=== PATIENT | female | born 1950 | race Caucasian/White ===

== ENCOUNTER → 2021-05-27 10:18 | Outpatient (CLI) | payer MEDICARE, OTHER, SELFPAY ==
[2021-05-27 12:09] LABS: Add Manual Diff / Slide Review NO; Basophils Absolute Auto 100 /uL (0-100); Basophils Percent Auto 0.8 % (0-2); Eosinophils Absolute Auto 100 /uL (0-450); Eosinophils Percent Auto 1.7 % (2-4); Hematocrit 42.1 % (36-46); Hemoglobin 14.2 g/dL (12.0-16.0); Lymphocytes Absolute Auto 2100 /uL (1100-4500); Lymphocytes Percent Auto 26.4 % (25-40); Mean Corpuscular HGB Conc 33.8 % (30-36); Mean Corpuscular Hemoglobin 30.5 PG (26-34); Mean Corpuscular Volume 90.3 fL (80-100); Monocytes Absolute Auto 500 /uL (0-900); Monocytes Percent Auto 6.2 % (3-14); Neutrophils Absolute Auto 5200 /uL (1500-7000); Neutrophils Percent Auto 64.9 % (50-75); Platelet Count 215 X10^3/uL (150-400); Red Blood Cell Count 4.66 X10^6/uL (4.0-5.2); Red Cell Distribution Width 13.3 % (11.6-14.8)
[2021-05-27 12:39] LABS: Erythrocyte Sedimentation Rate 3 MM/HR (0-20)
[2021-05-27 13:38] LABS: Alanine Aminotransferase 17 IU/L (<35); Albumin 4.1 g/dL (3.5-5.0); Albumin Globulin Ratio 1.6 (1.0-2.8); Alkaline Phosphatase 57 U/L (38-126); Aspartate Aminotransferase 25 IU/L (14-36); BUN Creatinine Ratio 32.1 (6-22); Bilirubin Total 0.3 mg/dL (0.2-1.3); Blood Urea Nitrogen 18 mg/dL (7-17); Calcium 9.3 mg/dL (8.4-10.2); Carbon Dioxide 29 mmol/L (22-32); Chloride 106 mmol/L (98-107); Estimated Glomerular Filt Rate > 60.0 mL/min (>60); Globulin 2.6 g/dL (1.7-4.1); Glucose 65 mg/dL (80-110); HEMOLYSIS 23 (0-50); Potassium 4.6 mmol/L (3.4-5.1); Sodium 138 mmol/L (137-145); Total Protein 6.7 g/dL (6.3-8.2)
[2021-05-27 13:43] LABS: High Sensitivity CRP - Cardiac 1.2 mg/L (1.0-3.0)
== END ==
PROVIDERS: Family Provider Family Medicine; PCP Family Medicine; Referring Provider Ophthalmology; Visit Provider Ophthalmology
DX: H53.123 Transient visual loss, bilateral (principal)
CPT/HCPCS: 36415; 80053; 85025; 85651; 86140

== ENCOUNTER → 2021-06-19 13:26 | Outpatient (CLI) | payer MEDICARE, OTHER, SELFPAY ==
--- NOTE | 2021-06-19 | DI.MG.S_ITS ---
BILATERAL DIGITAL DIAGNOSTIC MAMMOGRAM 3D/2D: 06/19/2021 CLINICAL: Left breast changes. Baseline. No prior exams were available for comparison. There are scattered fibroglandular elements in both breasts. No significant masses, calcifications, or other findings are seen in either breast. IMPRESSION: INCOMPLETE: NEEDS ADDITIONAL IMAGING EVALUATION There is no abnormality seen in the left breast to correspond with the nipple abnormality in the sub-areolar depth, however, ultrasound is recommended. This exam was interpreted at Station ID: [id number]. NOTE: For mammograms, a report in lay terms will be sent to the patient. Approximately 15% of breast malignancies will not be visualized mammographically. In the management of a palpable breast mass, a negative mammogram must not discourage biopsy of a clinically suspicious lesion. Electronically Signed By: Orlando bangura/lisseth:06/19/2021 14:22:37 ACR BI-RADS Category 0: Incomplete [id number]
--- NOTE | 2021-06-19 13:27 | DI.US.S_ITS ---
LIMITED ULTRASOUND OF LEFT BREAST: 06/19/2021 CLINICAL: Patient returns for sonographic evaluation of left breast mass. Comparison is made to exam dated: 06/19/2021 [facility]. Real-time ultrasound of the left breast retroareolar was performed. Yepez scale images of the real-time examination were reviewed. No significant abnormalities were seen sonographically in the left breast. IMPRESSION: NEGATIVE There is no sonographic evidence of malignancy. There is no abnormality seen in the left breast to correspond with the palpable abnormality in the sub-areolar depth, however, clinical followup is recommended. A 1 year screening mammogram is recommended. This exam was interpreted at Station ID: [id number]. Electronically Signed By: Orlando bangura/lisseth:06/19/2021 14:23:29 letter sent: Clinical Evaluation Ultrasound BI-RADS: 1 Negative
== END ==
PROVIDERS: Family Provider Family Medicine; PCP Family Medicine; Referring Provider Family Medicine; Visit Provider Family Medicine
DX: N64.59 Other signs and symptoms in breast (principal); R92.2 Inconclusive mammogram
CPT/HCPCS: 76642; 77066; G0279

== ENCOUNTER 2022-10-22 22:45 | Emergency (ER) | payer MEDICARE, OTHER, SELFPAY ==
[2022-10-22 22:54] VITALS: BP 176/76; PULSE 72; RESP 18; TEMP 36.1; O2SAT 98; BMI 21.2
--- NOTE | 2022-10-22 23:31 | ED_ITS ---
HPI - Skin/Abscess/Foreign Bdy General Chief complaint: Skin/Abscess/Foreign Body Stated complaint: Tick Time Seen by Provider: 10/22/22 23:15 Source: patient Mode of arrival: Ambulatory History of Present Illness HPI narrative: Patient here with . Has tick bite to the left upper thigh. Patient and were at [facility] for the past 3 days. They have a cabin there. Heavily wooded. Had been working in the outside area. Patient felt something on her thigh yesterday. They returned today. Getting out of the shower she noticed a tick. She removed the tick at 4:00 p.m.. She has removed the head as well. She brought it in with her. Since then has had erythema and red streaking proximally on the skin. No fever chills. Patient needs update on tetanus. Denies any heart disease. Denies any fever chills. The tick she states was flat. Not engorged. Patient in gown. Clothing removed. Female nurse at bedside to Meggan cox. Patient brought in the tick. 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 It is flat. Not engorged. Related Data Previous Rx's Medication Instructions Recorded oxyquinoline 0.025 %-sodium lauryl See Rx Instructions vaginal 04/04/19 sulfate 0.01 % vaginal gel .COMPLEX #113.4 grams doxycycline monohydrate 100 mg 100 mg PO BID #42 caps 10/22/22 capsule Allergies Allergy/AdvReac Type Severity Reaction Status Date / Time No Known Allergies Allergy Uncoded 09/16/17 12:06 Review of Systems Review of Systems Narrative: GENERAL: negative chills, fatigue, malaise, fever, sweats. HEENT: negative sinus pain, ear pain, sore throat RESPIRATORY: negative dyspnea, cough CARDIOVASCULAR: negative chest pain, palpitations GASTROINTESTINAL: negative nausea, vomiting, abdominal pain : negative dysuria, frequency, hematuria MUSCULOSKELETAL: negative muscle or bony pain SKIN: Positive rash NEUROLOGIC: negative weakness, numbness ROS Unobtainable: All systems reviewed & are unremarkable except as noted in HPI and below Patient History Social History Smoking Status: Never smoker Smoking Status: Never smoker alcohol intake frequency: holidays/special occasions only Substance Use Type: does not use Exam Narrative Exam Narrative: GENERAL: in no distress, not toxic not dyspneic HEAD: Normocephalic. EYES: Pupils equal round ENT: Mucous membranes moist. NECK: Trachea midline. CARDIOVASCULAR: Regular rate and rhythm without murmurs RESPIRATORY: Clear to auscultation. Breath sounds equal bilaterally. No wheezes, rales, or rhonchi. GASTROINTESTINAL: Abdomen soft, non-tender EXTREMITIES: No gross deformities. BACK: No flank tenderness. NEURO: AOx4. SKIN: Warm and dry, left upper thigh surgical pen used to outlined erythema surrounding the ulcerated skin where patient removed the tick. I do not see any remnants or body parts or the head parts inside this small ulceration that is pencil tip size. Erythema is 4 cm in diameter and oval shaped. There is a line of red streaking lymphangitis proximally going towards the left upper, it is not indurated. It is nontender. Meggan, nurse, at bedside to vegetable handler. I do not see any ticks on the scalp, exam light used overhead. No tick seen in the genitalia area breast back chest arms legs armpits between the fingers and toes. PSYCH: Not anxious, is cooperative Initial Vital Signs Initial Vital Signs: Vital Signs Temperature 97 F L 10/22/22 22:54 Pulse Rate 72 10/22/22 22:54 Respiratory Rate 18 10/22/22 22:54 Blood Pressure 176/76 H 10/22/22 22:54 Pulse Oximetry 98 10/22/22 22:54 Oxygen Delivery Method Room Air 10/22/22 22:54 Course Orders Ordered: ED Orders 10/22/22 23:40 Rickettsial Fever Gr IgG IgM Stat Discontinued Medications Bacitracin (Bacitracin Oint 0.9 Gm Pckt) 1 applic TOP NOW ONE Stop: 10/22/22 23:31 Last Admin: 10/22/22 23:38 Dose: 1 applic Documented By: PINKY Diphtheria/Tetanus/Acell Pertussis (Tet,Diph,Pertuss(Acell),Vac/Pf 0.5 Ml Syringe) 0.5 ml IM .ONCE ONE Stop: 10/22/22 23:31 Last Admin: 10/22/22 23:38 Dose: 0.5 ml Documented By: PINKY Doxycycline Hyclate (Doxycycline Hyclate 100 Mg Tablet) 100 mg PO NOW ONE Stop: 05/17/23 23:31 Last Admin: 10/22/22 23:38 Dose: 100 mg Documented By: PINKY Vital Signs Vital signs: Vital Signs - 8 hr 10/22/22 22:54 10/23/22 00:10 Temperature 97 F L Pulse Rate 72 74 Respiratory Rate 18 18 Blood Pressure 176/76 H 148/74 H Pulse Oximetry 98 98 Oxygen Delivery Method Room Air Room Air MDM - Skin/Abscess/Foreign Bdy MDM Narrative Medical decision making narrative: Patient here with . Has tick bite to the left upper thigh. Patient and were at [facility] for the past 3 days. They have a cabin there. Heavily wooded. Had been working in the outside area. Patient felt something on her thigh yesterday. They returned today. Getting out of the shower she noticed a tick. She removed the tick at 4:00 p.m.. She has removed the head as well. She brought it in with her. Since then has had erythema and red streaking proximally on the skin. No fever chills. Patient needs update on tetanus. Denies any heart disease. Denies any fever chills. The tick she states was flat. Not engorged. Patient in gown. Clothing removed. Female nurse at bedside to Meggan cox. Patient brought in the tick. 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 It is flat. Not engorged. After history and exam Bora Doe and Lyme blood test ordered. This is a send out. Doxycycline ordered. Tetanus shot ordered. [facility] CC: Tick bite Complicating co-morbidities: None Data collected from: Patient and Medical records reviewed: No previous visits here for this complaint Differential considered: Includes but not limited to Lyme disease Moses moun tain spotted fever, tularemia, tick paralysis, cellulitis Exam documented above, pertinent findings include: Erythema at the tick bite site however is not a bull's-eye pattern. Lab Test results independently reviewed as above. Pertinent findings: Lab are send outs No EKG or imaging indicated Treatments: Tetanus/wound care/doxycycline Re-evaluations: I did reviewed physical findings with patient and . At this time she does seem to have cellulitis skin infection from the tick bite and the active removing of the tick. Fortunately doxycycline can be used for cellulitis as well as prophylactic for tick bite/Lyme disease. Discussion: Appropriate for discharge home. Exam is reassuring. Patient has complaint of cellulitis from the tick bite, at this time I do not believe this is a target lesion/bull's-eye lesion. I think this is from removing the tick and causing local infection. Appropriate for doxycycline to cover prophylactically for parasitic tick bite until results come back, however doxycycline may also treat for cellulitis. Return precautions reviewed with patient. Not toxic at discharge. They desire discharge home Diagnosis: Tick bite/cellulitis Discharge Plan Departure Patient Disposition: Home Clinical Impression: Cellulitis, Tick bite Instructions: DI for Cellulitis -- Adult, Tularemia, [place] Tick Fever, DI for Rodey Spotted Fever, DI for Lyme Disease Activity Restrictions/Additional Instructions: Prescription antibiotic doxycycline has been sent to your pharmacy to to continue tomorrow. It is prescribed for 21 days. Your exam today shows that you develops cellulitis, skin infection from the tick itself, however blood work to evaluate for Lyme disease and Moses mountain spotted fever is a send out and will return later this week. Fortunately doxycycline is appropriate to treat for cellulitis and tick-borne diseases. Please call the hospital for results of your blood work in 3 days. If it is normal then you but only need to continue the doxycycline for 7 days. However if it is positive you will need to continue for 21 days. In this time of waiting, please call your family doctor for office re-evaluation this week. Return if worse if any questions or concerns. Please do continue doing head-to-toe skin checks daily for any further ticks Prescriptions: New doxycycline monohydrate 100 mg capsule 100 mg PO BID Qty: 42 0RF No Action oxyquinoline-sod.lauryl sulfat 0.025-0.01 % gel See Rx Instructions VAG .COMPLEX Qty: 113.4 3RF Rx Instructions: Use one applicator full once weekly with pessary Referrals: Greg Lei MD [Primary Care Provider] - Stand Alone Forms: Patient Portal/API
[2022-10-22] MEDS: TET,DIPH,PERTUSS(ACELL),VAC/PF 0.5 ML SYRINGE IM (23:38)
[2022-10-22] MEDS: DOXYCYCLINE HYCLATE 100 MG TABLET PO (23:38)
[2022-10-22] MEDS: BACITRACIN OINT 0.9 GM PCKT 1 APPLIC TOP (23:38)
[2022-10-23 00:10] VITALS: BP 148/74; PULSE 74; RESP 18; O2SAT 98
[2022-10-27 13:09] LABS: 18 kD IgG Band Absent (.); 23 kD IgG Band Absent (.); 28 kD IgG Band Absent (.); 30 kD IgG Band Absent (.); 39 kD IgG Band Absent (.); 41 kD IgG Bands Absent (.); 45 kD IgG Band Absent (.); 58 kD IgG Band Absent (.); 66 kD IgG Band Absent (.); IgG P93 AB Absent (.); IgM P23 AB Absent (.); IgM P39 AB Absent (.); IgM P41 AB Absent (.); Lyme IgG Line Blot Interpretat Negative (.); Lyme IgM Line Blot Interpretat Negative (.)
[2022-10-28 13:12] LABS: Spotted Fever Gr IgM <1:64 (Neg:<1:64); Spotted Fever Group IgG <1:64 (Neg:<1:64); Typhus Fever Group IgG <1:64 (Neg:<1:64); Typhus Fever Group IgM <1:64 (Neg:<1:64)
== END 2022-10-23 00:09 | disposition home or self-care (01) ==
PROVIDERS: Emergency Provider Emergency Medicine; Family Provider Family Medicine; PCP Family Medicine
DX: L03.116 Cellulitis of left lower limb (principal); S70.362A Insect bite (nonvenomous), left thigh, initial encounter; W57.XXXA Bitten or stung by nonvenomous insect and other nonvenomous arthropods, initial encounter; Z23 Encounter for immunization
CPT/HCPCS: 86617; 86757; 90471; 99283; 90715

== ENCOUNTER → 2024-02-02 11:41 | Outpatient (CLI) | payer MEDICARE, OTHER, SELFPAY | PROVIDERS: Family Provider Family Medicine; PCP Family Medicine; Visit Provider Physician Assistant Medical | DX: L02.519 Cutaneous abscess of unspecified hand (principal) | CPT/HCPCS: 87070; 87077; 87205 ==

== ENCOUNTER → 2025-05-25 11:41 | Outpatient (CLI) | payer MEDICARE, OTHER, SELFPAY ==
[2025-05-25 14:04] LABS: Add Manual Diff / Slide Review NO; Hematocrit 36.4 % (36-46); Hemoglobin 12.4 g/dL (12.0-16.0); Lymphocytes Absolute Auto 900 /uL (1100-4500); Mean Corpuscular HGB Conc 34.0 % (30-36); Mean Corpuscular Hemoglobin 29.2 PG (26-34); Mean Corpuscular Volume 85.7 fL (80-100); Platelet Count 357 X10^3/uL (150-400)
[2025-05-25 14:22] LABS: Alanine Aminotransferase 13 IU/L (<35); Albumin 3.6 g/dL (3.5-5.0); Albumin Globulin Ratio 1.3 (1.0-2.8); Alkaline Phosphatase 52 U/L (38-126); Blood Urea Nitrogen 18 mg/dL (7-17); Calcium 8.6 mg/dL (8.4-10.2); Carbon Dioxide 24 mmol/L (22-32); Chloride 101 mmol/L (98-107); Estimated Glomerular Filt Rate > 60 mL/min (>60); Globulin 2.8 g/dL (1.7-4.1); Glucose 130 mg/dL (70-99); HEMOLYSIS < 15 (0-50); Potassium 4.5 mmol/L (3.4-5.1); Sodium 137 mmol/L (137-145); Total Protein 6.4 g/dL (6.3-8.2)
[2025-05-25 14:35] LABS: Free T4, Direct Thyroxine 1.33 ng/dL (0.78-2.19)
[2025-05-25 14:49] LABS: Thyroid Stimulating Hormone 1.96 uIU/mL (0.47-4.68)
== END ==
PROVIDERS: Family Provider Family Medicine; PCP Family Medicine; Referring Provider Family Medicine; Visit Provider Family Medicine
DX: E03.9 Hypothyroidism, unspecified (principal); M25.50 Pain in unspecified joint; M79.10 Myalgia, unspecified site; R53.82 Chronic fatigue, unspecified
CPT/HCPCS: 36415; 80053; 84439; 84443; 85025; 86038; 86140; 86200; 86430

== ENCOUNTER → 2025-06-05 09:54 | Outpatient (CLI) | payer MEDICARE, OTHER, SELFPAY ==
--- NOTE | 2025-06-05 09:57 | DI.RAD.S_ITS ---
PROCEDURE: XR SHOULDER LT MIN 2V INDICATIONS: LT SHOULDER PAIN TECHNIQUE: 3 views of the shoulder were acquired. COMPARISON: None. FINDINGS: Bones: No fractures or dislocations. Moderate acromioclavicular joint and glenohumeral joint osteoarthritic changes are seen. No suspicious bony lesions. Visualized ribs appear intact. Soft tissues: No suspicious soft tissue calcifications. IMPRESSION: Moderate left shoulder joint osteoarthritis. No acute fracture or dislocation. No gross soft tissue abnormality. Dictated by: Hunter Green M.D. on 06/05/2025 at 10:38 Approved by: Hunter Green M.D. on 06/05/2025 at 10:38
== END ==
PROVIDERS: Family Provider Family Medicine; PCP Family Medicine; Referring Provider Family Medicine; Visit Provider Family Medicine
DX: M19.012 Primary osteoarthritis, left shoulder (principal); M25.512 Pain in left shoulder
CPT/HCPCS: 73030